=== PATIENT | female | born 1980 | race Caucasian/White ===

== ENCOUNTER 2018-03-23 06:53 | Outpatient (CLI) | payer OTHER ==
[~2018-03-23] VITALS: Ht 160 cm; Wt 59.0 kg
[2018-03-23 07:38] VITALS: BP 117/89; PULSE 68; TEMP 97.8
[2018-03-23] MEDS ORDERED: LATUDA80 MG PO (07:41)
[2018-03-23] MEDS ORDERED: PROZAC40 MG PO (07:41)
[2018-03-23] MEDS ORDERED: AMBIEN 10MG10 MG PO (07:42)
[2018-03-23] MEDS ORDERED: ADDERALL XR30 MG PO (07:43)
[2018-03-23 09:45] VITALS: BP 119/90; PULSE 76; TEMP 98
[2018-03-23 09:54] LABS: BASO # 0.1 (0.0-0.2); BASO % 1.3 % (0.0-2.0); EOS # 0.3 (0.0-0.7); EOS % 2.7 % (0-4.0); GRAN # 7.7 (1.4-6.5); GRAN % 68.9 % (42.2-75.2); HEMATOCRIT 47.5 % (37.0-47.0); HEMOGLOBIN 16.2 g/dl (12.5-16.0); LYMPH % 18.2 % (20.0-51.0); MEAN CELL VOLUME 92 fl (80.0-100.0); MEAN CORPUSCULAR HEMOGLOBIN 31 pg (27.0-31.0); MEAN CORPUSCULAR HGB CONC 34 g/dl (33.0-37.0); MEAN PLATELET VOLUME 9.3 fl (7.4-10.4); MONO # 0.9 (0.1-0.6); MONO % 8.3 % (1.7-9.3); PLATELET COUNT 318 K/mm3 (130-400); RED BLOOD COUNT 5.18 M/mm3 (4.10-5.30); REDCELL DISTRIBUTION WIDTH-CV 13.9 % (11.5-14.5)
[2018-03-23 10:00] VITALS: BP 115/91; PULSE 72; TEMP 98
[2018-03-23 10:15] VITALS: BP 116/90; PULSE 74; TEMP 97.1
[2018-03-23 10:30] VITALS: BP 115/88; PULSE 74; TEMP 98
[2018-03-23 11:33] VITALS: BP 114/72; PULSE 63
== END 2018-03-23 11:00 | disposition home or self-care (01) ==
LOC: SDCO 06:53
PROVIDERS: Pathology Anatomic Pathology & Clinical Pathology
DX: D75.1 Secondary polycythemia (principal); D72.829 Elevated white blood cell count, unspecified; F41.9 Anxiety disorder, unspecified; F32.9 Major depressive disorder, single episode, unspecified; F17.210 Nicotine dependence, cigarettes, uncomplicated
CPT/HCPCS: J2250; J2704; J3010